=== PATIENT | female | born 1960 | race Caucasian/White ===

== ENCOUNTER 2019-01-30 08:16 | Emergency (ER) | payer BC ==
--- NOTE | 2019-01-30 08:29 | EDM.PDOC ---
ED HPI GENERAL MEDICAL PROBLEM - General Chief Complaint: Respiratory Problem Stated Complaint: SEVERE COLD, CAN'T SLEEP Time Seen by Provider: 01/30/19 08:28 Source of Information: Reports: Patient, RN, RN Notes Reviewed History Limitations: Reports: No Limitations - History of Present Illness INITIAL COMMENTS - FREE TEXT/NARRATIVE: Pt presents to ER from home by POV with c/o a severe cough x1 week. Pt was seen in clinic and tx'd with a prescription cough syrup but states it does nothing to reduce the cough. She admits to mild sinus congestion, harsh dry cough, and headache caused by coughing. She has felt hot, but has not measured her temperature. In clinic earlier this week she states she was examined, but no tests or chest x-ray was done. She denies chest pain, wheezing, abdominal pain, edema, or orthopnea. Onset: Gradual Duration: Week(s): (1), Constant Location: Reports: Chest Quality: Reports: Ache Severity: Moderate Improves with: Reports: None Worsens with: Reports: None Context: Reports: Sick Contact Associated Symptoms: Reports: No Other Symptoms - Related Data Allergies Allergy/AdvReac Type Severity Reaction Status Date / Time No Known Allergies Allergy Verified 01/30/19 08:30 Home Meds: Home Meds Simvastatin 20 mg PO DAILY 01/30/19 [History] guaiFENesin [Robafen] 100 mg PO QID 01/30/19 [History] Past Medical History Cardiovascular History: Reports: High Cholesterol Endocrine/Metabolic History: Reports: Obesity/BMI 30+ Social & Family History - Family History Family Medical History: Noncontributory ED ROS GENERAL - Review of Systems Review Of Systems: ROS reveals no pertinent complaints other than HPI. ED EXAM, GENERAL - Physical Exam Exam: See Below Exam Limited By: No Limitations General Appearance: Alert, WD/WN, No Apparent Distress, Obese Eye Exam: Bilateral Eye: Normal Inspection Ears: Hearing Grossly Normal Nose: Normal Mucosa, No Blood, Nasal Drainage (small amt. of clear nasal muscus drainage) Throat/Mouth: Normal Inspection, Normal Lips, Normal Teeth, Normal Gums, Normal Oropharynx, Normal Voice, No Airway Compromise Head: Atraumatic, Normocephalic Neck: Normal Inspection, Supple, Non-Tender, Full Range of Motion, Other (No nuchal rigidity). No: Lymphadenopathy (L), Lymphadenopathy (R) Respiratory/Chest: No Respiratory Distress, No Accessory Muscle Use, Chest Non- Tender, Decreased Breath Sounds, Crackles, Other (Course breath sounds, harsh deep dry cough). No: Rales, Rhonchi, Wheezing, Stridor Cardiovascular: Regular Rate, Rhythm, No Edema Extremities: Normal Inspection Neurological: Alert, Oriented, No Motor/Sensory Deficits Psychiatric: Normal Affect, Normal Mood Skin Exam: Warm, Dry, Intact, Normal Color, No Rash Course - Vital Signs Last Recorded V/S: Last Vital Signs Temp 36.3 C 01/30/19 08:32 Pulse 67 01/30/19 08:32 Resp 18 01/30/19 08:32 BP 132/77 01/30/19 08:32 Pulse Ox 100 01/30/19 08:34 - Orders/Labs/Meds Orders: Active Orders 24 hr Category Date Time Status RT Aerosol Therapy [RC] ASDIRECTED Care 01/30/19 08:34 Active INFLUENZA A+B AG SCREEN [RM] Stat Lab 01/30/19 08:35 Results Labs: Laboratory Tests 01/30/19 Range/Units 08:38 WBC 8.0 (5.0-10.0) 10^3/uL RBC 4.23 (4.2-5.4) 10^6/uL Hgb 12.7 (12.0-16.0) g/dL Hct 38.8 (37.0-47.0) % MCV 91.7 (80-100) fL MCH 30.0 (27.0-34.0) pg MCHC 32.7 L (33.0-35.0) g/dL Plt Count 214 (150-450) 10^3/uL Neut % (Auto) 56.8 (42.2-75.2) % Lymph % (Auto) 30.5 (20.5-50.1) % [place] % (Auto) 8.0 (2-8) % Eos % (Auto) 4.5 H (1.0-3.0) % Baso % (Auto) 0.2 (0.0-1.0) % Rapid Strep: Negative Influenza A/B: Negative Meds: Medications Discontinued Medications Generic Name Dose Route Start Last Admin Trade Name Freq PRN Reason Stop Dose Admin Albuterol/Ipratropium 3 ml 01/30/19 08:33 01/30/19 08:44 Duoneb 3.0-0.5 Mg/3 Ml NEB 01/30/19 08:34 3 ml ONETIME ONE Administration Benzonatate 200 mg 01/30/19 08:33 Tessalon Perles PO 01/30/19 08:34 ONETIME ONE - Radiology Interpretation Free Text/Narrative:: CXR: no focal pneumonia, bronchitis changes per Rad. report. Departure - Departure Time of Disposition: 09:08 Disposition: Home, Self-Care 01 Condition: Good Clinical Impression: Bronchospasm Acute bronchitis Qualifiers: Bronchitis organism: other organism Qualified Code(s): J20.8 - Acute bronchitis due to other specified organisms - Discharge Information *PRESCRIPTION DRUG MONITORING PROGRAM REVIEWED*: No *COPY OF PRESCRIPTION DRUG MONITORING REPORT IN PATIENT NABIL: No Instructions: Acute Bronchitis, Adult, Bronchospasm, Adult, [id number] Forms: ED Department Discharge Additional Instructions: Rx: Albuterol Inhaler Rx: Prednisone 20mg Rx: Tessalon Perles 200mg Follow up in clinic if worse at any time. - My Orders Last 24 Hours: My Active Orders 01/30/19 08:34 RT Aerosol Therapy [RC] ASDIRECTED 01/30/19 08:35 INFLUENZA A+B AG SCREEN [RM] Stat - Assessment/Plan Last 24 Hours: My Active Orders 01/30/19 08:34 RT Aerosol Therapy [RC] ASDIRECTED 01/30/19 08:35 INFLUENZA A+B AG SCREEN [RM] Stat
[2019-01-30] MEDS ORDERED: Albuterol/Ipratropium 3.0-0.5 MG/3 ML Neb Soln NEB ONE (08:33)
[2019-01-30] MEDS ORDERED: Benzonatate 100 MG Cap PO ONE (08:33)
--- NOTE | 2019-01-30 08:53 | CR ---
Clinical history: 58-year-old female with cough. Interpretation: Normal cardiac silhouette without cephalization of flow, signs of alveolar edema or dependent effusion. Left aortic arch. Signs of disc disease and arthritis of the spine but thorax otherwise unremarkable. No lung mass, hilar lymphadenopathy or focal lobar pneumonia. Mild bronchitic changes. No atelectasis or collapse. No pneumothorax. CONCLUSION: No signs of heart failure or lobar pneumonia. Mild bronchitis.
[2019-01-30] MEDS ORDERED: Albuterol 6.7 GM Inhaler INH ONE (09:12)
== END 2019-01-30 09:28 | disposition home or self-care (01) ==
LOC: DL.ED 08:16
DX: J20.8 Acute bronchitis due to other specified organisms (principal); E78.00 Pure hypercholesterolemia, unspecified; Z79.899 Other long term (current) drug therapy
CPT/HCPCS: 36415; 71046; 85025; 87430; 87804; 94640; 99284; A9270; J7620-GY